=== PATIENT | male | born 1990 | race African-American/Black ===

== ENCOUNTER 2018-01-16 20:49 | Emergency (ER) | payer SELFPAY ==
[2018-01-16 21:10] VITALS: BP 122/75; PULSE 67; TEMP 98.1; BMI 24.3
[2018-01-16 21:13] LABS: PH,URINE 6.5 (4.5-8); URINE APPEARANCE Clear; URINE BILIRUBIN Negative (NEGATIVE); URINE BLOOD Negative (NEGATIVE); URINE GLUCOSE (UA) Negative (NEGATIVE); URINE KETONE Negative (NEGATIVE); URINE NITRITE Negative (NEGATIVE); URINE PROTEIN Negative (NEGATIVE); URINE UROBILINOGEN 0.2 (0.2-1.0)
[2018-01-16 21:15] LABS: URINE COLOR YELLOW; URINE LEUK ESTERASE TRACE (NEGATIVE)
[2018-01-16] MEDS ORDERED: AZITHROMYCIN 1 GM PACKET PO ONE (21:17)
--- NOTE | 2018-01-16 21:21 | PDOC ---
History of Present Illness - General History Source: Patient Exam Limitations: No Limitations - History of Present Illness Initial Comments: 01/16/18 21:22 The patient is a 27 year old male, with no significant PMH of who presents to the emergency department with left sided groin pain and swelling that began about 2 days ago. The patient states that his groin pain is constant. He also reports that his pain is worsened with urination . The patient reports that he has a girlfriend of one year and that they are exclusive. He states that his girlfriend shows no common associated symptoms. The patient denies any past history of STDs. The patient denies chest pain, shortness of breath, headache and dizziness. Denies fever, chills, nausea, vomit, diarrhea and constipation. Denies Urinary frequency, urgency and hematuria. Allergies: NKA Past surgical history: None reported Social history: The patient reports that he drinks alcohol on the weekends. He also reports smoking marijuana 1-2 times a week. PCP: None reported <Jessica Fink - Last Filed: 01/16/18 21:29> <Annie Fulton - Last Filed: 01/16/18 21:43> - General Chief Complaint: Pain, Acute Stated Complaint: LLQ PAIN AND SWELLING/DIFFICULTY URINATING Time Seen by Provider: 01/16/18 20:51 Past History <Jessica Fink - Last Filed: 01/16/18 21:29> - Past Medical History COPD: No Other medical history: DENIES - Suicide/Smoking/Psychosocial Hx Smoking History: Never smoked Have you smoked in the past 12 months: No Information on smoking cessation initiated: No Hx Alcohol Use: Yes (OCCAS) Drug/Substance Use Hx: No Substance Use Type: None <Annie Fulton - Last Filed: 01/16/18 21:43> - Past Medical History Allergies/Adverse Reactions: Allergies Allergy/AdvReac Type Severity Reaction Status Date / Time No Known Allergies Allergy Verified 01/16/18 20:50 Home Medications: Ambulatory Orders NK [No Known Home Medication] 01/16/18 Review of Systems - Review of Systems Able to Perform ROS?: Yes Comments:: 01/16/18 21:23 CONSTITUTIONAL: Absent: fever, chills, diaphoresis, generalized weakness, malaise, loss of appetite HEENT: Absent: rhinorrhea, nasal congestion, throat pain, throat swelling, difficulty swallowing, mouth swelling, ear pain, eye pain, visual Changes CARDIOVASCULAR: Absent: chest pain, syncope, palpitations, irregular heart rate, lightheadedness , peripheral edema RESPIRATORY: Absent: cough, shortness of breath, dyspnea with exertion, orthopnea, wheezing, stridor, hemoptysis GASTROINTESTINAL: Absent: abdominal pain, abdominal distension, nausea, vomiting, diarrhea, constipation, melena, hematochezia GENITOURINARY: Present(+) Dysuria, left sided groin pain and swelling. Absent: frequency, urgency, hesitancy, hematuria, flank pain. MUSCULOSKELETAL: Absent: myalgia, arthralgia, joint swelling SKIN: Absent: rash, itching, pallor HEMATOLOGIC/IMMUNOLOGIC: Absent: easy bleeding, easy bruising, lymphadenopathy, frequent infections ENDOCRINE: Absent: unexplained weight gain, unexplained weight loss, heat intolerance, cold intolerance NEUROLOGIC: Absent: headache, focal weakness or paresthesias, dizziness, unsteady gait, seizure, mental status changes, bladder or bowel incontinence PSYCHIATRIC: Absent: anxiety, depression, suicidal or homicidal ideation, hallucinations. <Jessica Fink - Last Filed: 01/16/18 21:29> *Physical Exam - Vital Signs Last Vital Signs Temp Pulse Resp BP Pulse Ox 98.1 F 67 16 122/75 99 01/16/18 20:50 01/16/18 20:50 01/16/18 20:50 01/16/18 20:50 01/16/18 20:50 <Jessica Fink - Last Filed: 01/16/18 21:29> - Vital Signs Last Vital Signs Temp Pulse Resp BP Pulse Ox 98.1 F 67 16 122/75 99 01/16/18 20:50 01/16/18 20:50 01/16/18 20:50 01/16/18 20:50 01/16/18 20:50 - Physical Exam General Appearance: Yes: Nourished, Appropriately Dressed. No: Apparent Distress, Disheveled HEENT: positive: Normal ENT Inspection Respiratory/Chest: positive: Lungs Clear Cardiovascular: positive: Regular Rhythm, Regular Rate Gastrointestinal/Abdominal: positive: Normal Bowel Sounds, Flat, Soft. negative : Organomegaly, Pulsatile Mass, Guarding, Rebound, Tenderness Male Genitalia: positive: normal genitalia, other (+ L inguinal lymphadenopathy and slight swelling, no testicular pain nor swelling, no extrusion through inguinal canal, normal genitalia without lesions/rashes/discharge). negative: discharge, testicular tenderness Rectal Exam: positive: deferred Musculoskeletal: positive: Normal Inspection Extremity: positive: Normal Capillary Refill, Normal Inspection Integumentary: positive: Normal Color, Dry, Warm Neurologic: positive: Fully Oriented, Alert, Normal Mood/Affect, Normal Response <Annie Fulton - Last Filed: 01/16/18 21:43> ED Treatment Course - ADDITIONAL ORDERS Additional order review: Laboratory Results 01/16/18 21:00 Urine Color Yellow Urine Appearance Clear Urine pH 6.5 Ur Specific [place] 1.020 Urine Protein Negative Urine Glucose (UA) Negative Urine Ketones Negative Urine Blood Negative Urine Nitrite Negative Urine Bilirubin Negative Urine Urobilinogen 0.2 Ur Leukocyte Esterase Trace H <Jessica Fink - Last Filed: 01/16/18 21:29> - ADDITIONAL ORDERS Additional order review: Laboratory Results 01/16/18 21:00 Urine Color Yellow Urine Appearance Clear Urine pH 6.5 Ur Specific [place] 1.020 Urine Protein Negative Urine Glucose (UA) Negative Urine Ketones Negative Urine Blood Negative Urine Nitrite Negative Urine Bilirubin Negative Urine Urobilinogen 0.2 Ur Leukocyte Esterase Trace H <Annie Fulton - Last Filed: 01/16/18 21:43> Medical Decision Making - Medical Decision Making 01/16/18 21:18 27M no sig PMHx with cc of dysuria and swelling to L inguinal area x 2-3 days. No testicular pain/swelling. +one monogamous partner who is asymptomatic. Exam c /w lymphadenopathy to L groin, no penile lesions, normal testicular exam. No extrusion through inguinal ring, not increased with increased intraabd pressure to suspect hernia. Will send UA and gc/chlamydia. Likely dx discussed with pt, informed that his results wouldn't be back for a few days but that we will treat him empirically for GC/chlamydia and that he should abstain from sex and have his partner seen and treated as well. Pt advised to return to ER if his symptoms worsen rather than improve or if he has fever, vomiting. 01/16/18 21:37 Urine reviewed, no UTI. Received ctx and azithro. Will dc home with above instructions. f/u with PMD and return if worsening. <Annie Fulton - Last Filed: 01/16/18 21:43> *DC/Admit/Observation/Transfer - Attestations Scribe Attestion: 01/16/18 21:23 Documentation prepared by Jessica Fink, acting as associate medical director for Annie Fulton DO. <Jessica Fink - Last Filed: 01/16/18 21:29> - Discharge Dispostion Admit: No <Annie Fulton - Last Filed: 01/16/18 21:43> Diagnosis at time of Disposition: Urethritis - Discharge Dispostion Disposition: HOME Condition at time of disposition: Stable - Patient Instructions Printed Discharge Instructions: DI for Urethritis Additional Instructions: You were seen in the ER for burning when you urinate and some swelling in your left groin area. The swelling seems to be a swollen lymph node. At this point, the most likely diagnosis is an STD, gonorrhea or chlamydia. A test was sent to check for this, this test takes about 3 days to come back. You should receive a call if the result is positive. We treated you just in case you do have this with 2 antibiotics (ceftriaxone 250mg intramuscular injection and 1000mg of azithromycin as a pill). We recommend that your girlfriend also be seen and treated to avoid the possibility of passing it back and forth. If your symptoms are NOT improving, if you have fever, chills or worsening pain or swelling, you need to be seen again. Please either see your primary care doctor or return to the ER.
[2018-01-16] MEDS ORDERED: AZITHROMYCIN 250 MG TABLET ONE (21:29)
[2018-01-16 21:35] LABS: URINE BACTERIA FEW /hpf (NEGATIVE); URINE RBC 0-2 /hpf (0-3)
== END 2018-01-16 21:49 | disposition home or self-care (01) ==
LOC: FER 20:49
DX: N34.2 Other urethritis (principal)
CPT/HCPCS: 36415; 81003; 81015; 87086; 87491; 87591; 99281-25

== ENCOUNTER 2018-01-19 08:46 | Emergency (ER) | payer SELFPAY ==
--- NOTE | 2018-01-19 08:49 | PDOC ---
History of Present Illness - General Chief Complaint: Rash Stated Complaint: SORES ON PENIS Time Seen by Provider: 01/19/18 08:49 History Source: Patient Exam Limitations: No Limitations - History of Present Illness Initial Comments: 01/19/18 09:11 27y M no pmhx presents with complaint of penile lesions. Pt states he is in a monogamous relationship with a girlfriend for the past year, was here 2 days ago with concerns for a nonpainful bump on his L groin and some urinary sypmtoms - was treated for presumptive STD w/ azithro and ctx. Pt noticed multiple penile rashes this morning that is nonpainful. pt yo any dysuria, penile discharge, hematuria, fever/chills, abd pain. Past History - Past Medical History Allergies/Adverse Reactions: Allergies Allergy/AdvReac Type Severity Reaction Status Date / Time No Known Allergies Allergy Verified 01/19/18 08:47 Home Medications: Ambulatory Orders NK [No Known Home Medication] 01/16/18 COPD: No - Suicide/Smoking/Psychosocial Hx Smoking History: Never smoked Have you smoked in the past 12 months: No Hx Alcohol Use: Yes (OCCAS) Drug/Substance Use Hx: No Substance Use Type: None Review of Systems - Review of Systems Able to Perform ROS?: Yes Comments:: 01/19/18 09:12 Constitutional - no reported Fever, Chills, Respiratory: no reported cough, Cardiac: no reported chest pain, palpitations, light headedness, leg swelling Abd/GI: no reported abd pain, nausea, vomiting, blood per rectum, melena, diarrhea +Penile rash, +bump : no reported dysuria, frequency, discharge Musculskelatal - no reported back pain, joint pain skin - +penile rash no reported bruising, erythema, rash neurological: no reported headache, numbness, focal weakness, tingling, *Physical Exam - Physical Exam Comments: 01/19/18 09:13 GENERAL: The patient is awake, alert, and fully oriented, Nontoxic - in no acute distress. ABDOMEN: Soft, nontender, No guarding, no rebound. . No CVA tenderness : uncircumcised penis, multiple pale appearing ulcers measuring approx 2-3mm on head of penis, nontender, no discharge, no vesicles/papules noted. NO scrotal tensness mild soft tissue swelling on L inguianl region without discrete lymphadenopathy , there are a 1-2 discrete, nontender, mobile lymph nodes palpable in R inguilna region SKIN: Warm, Dry, normal turgor, No rashes elsewhere on body Medical Decision Making - Medical Decision Making 01/19/18 09:19 possible syphillis - will ck RPR, HIV pt requets prophylactic treatment - notified patient if it is positive will need treatment for his partner consider possible chancroid - however pt s/p azithro/ctx which will cross treat ducreyii *DC/Admit/Observation/Transfer Diagnosis at time of Disposition: Penile rash - Discharge Dispostion Disposition: HOME Condition at time of disposition: Stable Admit: No - Referrals Referrals: Igor Muller MD [Staff Physician] - - Patient Instructions Printed Discharge Instructions: DI for Genital Lesions Additional Instructions: Return to the emergency department immediately with ANY new, persistent or worsening symptoms. Your test results are pending. Please call back in 4-5 days for the results. You MUST call and follow up with your primary doctor within 4-5 days for further evaluation of your symptoms. Results were discussed with you. Please make sure your doctor reviews the results of your emergency evaluation. Print Language: [place]ISH - Post Discharge Activity
[2018-01-19 08:53] VITALS: BP 131/85; PULSE 76; TEMP 98.4; BMI 23.6
[2018-01-19] MEDS ORDERED: PENICILLIN G BENZATHINE 2,400,000 UNIT/4 ML PFS IM ONE (09:10)
[2018-01-19] MEDS ORDERED: PENICILLIN G BENZATHINE 1,200,000 UNIT/2 ML PFS IM ONE (09:15)
== END 2018-01-19 09:52 | disposition home or self-care (01) ==
LOC: FER 08:46
DX: R21 Rash and other nonspecific skin eruption (principal)
CPT/HCPCS: 36415; 86593; 87389; 99281-25